=== PATIENT | male | born 1960 | race Caucasian/White ===

== ENCOUNTER 2016-12-25 14:45 | Emergency (ER) | payer OTHER ==
[~2016-12-25] VITALS: Ht 167.6 cm; Wt 65.8 kg
--- NOTE | 2016-12-25 14:47 | NUR ---
PT BIBRA FROM CUSTODIAL TO ER BED 16. HERE FOR GENERALIZED WEAKNESS. PER REPORT, NOTED BLOOD SUGAR FLUCTUATION. PT IS AAOX3. VERBALLY RESPONSIVE. PLACED ON MONITOR. AWAITING MD NASCIMENTO.
[2016-12-25] MEDS ORDERED: CAN'T RECALL (14:53)
--- NOTE | 2016-12-25 14:57 | NUR ---
DR VERDE AT BEDSIDE FOR EVAL.
[2016-12-25] MEDS ORDERED: IV NS 0.9% 1,000 ML BAG IV ONE (15:00)
--- NOTE | 2016-12-25 15:03 | NUR ---
GAUGE OPERATOR AT BEDSIDE FOR BLOOD DRAW.
[2016-12-25 15:08] LABS: BASOPHILS # (AUTO) 0.1 /CMM (0.0-0.2); BASOPHILS % (AUTO) 0.6 % (0.0-2.0); EOSINOPHILS # (AUTO) 0.4 /CMM (0.0-0.7); EOSINOPHILS % (AUTO) 3.5 % (0.0-6.0); HEMATOCRIT 26 % (39-51); HEMOGLOBIN 8.8 g/dL (13.5-17.5); LYMPHOCYTES # (AUTO) 2.6 /CMM (0.8-4.8); LYMPHOCYTES % (AUTO) 22.6 % (20.0-44.0); MEAN CORPUSCULAR HEMOGLOBIN 25 PG (26.0-33.0); MEAN CORPUSCULAR HGB CONC 33 g/dl (31.0-36.0); MEAN CORPUSCULAR VOLUME 75 fL (80-96); MONOCYTES % (AUTO) 8.4 % (2.0-12.0); NEUTROPHILS # (AUTO) 7.2 /CMM (1.8-8.9); NEUTROPHILS % (AUTO) 64.9 % (43.0-81.0); PLATELET COUNT (AUTO) 360 /CMM (150-450); RDW COEFFICIENT OF VARIATION 13.4 (11.5-15.0); RED BLOOD CELL COUNT(AUTO) 3.49 MIL/uL (4.5-6.0); WHITE BLOOD COUNT (AUTO) 11.3 K/uL (4.3-11.0)
[2016-12-25 15:23] LABS: ALBUMIN 1.5 g/dL (3.4-5.0); BILIRUBIN,TOTAL 0.1 mg/dL (0.2-1.0); CALCIUM, SERUM 7.8 mg/dL (8.5-10.1); CREATININE 1.2 mg/dL (0.6-1.3); POTASSIUM 3.2 mmol/L (3.5-5.1); TOTAL PROTEIN, SERUM 6.4 g/dL (6.4-8.2)
[2016-12-25] MEDS ORDERED: POTASSIUM CHLORIDE 20 MEQ TAB.PRT.SR PO ONE ×2 (15:30→15:53)
--- NOTE | 2016-12-25 16:43 | NUR ---
PT IS STATING THAT HE FEELS BETTER. AMBULATORY W/ STEADY GAIT. IVHL D/C'D. STABLE CONDITION.
[2016-12-25 16:47] VITALS: BP 128/84
== END 2016-12-25 16:49 | disposition home or self-care (01) ==
LOC: ER 14:47
DX: R53.1 Weakness (principal); E11.649 Type 2 diabetes mellitus with hypoglycemia without coma; D50.9 Iron deficiency anemia, unspecified; I10 Essential (primary) hypertension; J45.909 Unspecified asthma, uncomplicated; Z59.0 Homelessness; Z79.4 Long term (current) use of insulin
CPT/HCPCS: 36415; 80048; 80076; 82962 ×2; 83690; 85025; 93005; 99285; A4606; J7030; Z7610